=== PATIENT | female | born 1975 | race Caucasian/White ===

== ENCOUNTER 2017-11-19 06:57 | Observation (INO) | payer OTHER ==
[~2017-11-19 06:57] MED LIST: ACETAMINOPHEN 1000 MG/100 ML 100 ML IV; ARTIFICIAL TEARS OPTH OINT 3.5 APPLIC/3.5 GM TUBO
[2017-11-19] MEDS: CHLORHEXIDINE GLUCONATE 2 % 1 PACK (2 CLOTHS) TOPICAL (07:45)
[2017-11-19] MEDS: LACTATED RINGER'S 1000 ML IV (07:45)
[2017-11-19] MEDS ORDERED: ceFAZolin 2 GM PREMIX 50 ML (07:45)
[2017-11-19] MEDS: POVIDONE IODINE 5% (ANTISEPSIS KIT) 4 APPLICATIONS EACH NARE (07:45)
[2017-11-19] MEDS ORDERED: ceFAZolin 2 GM in NS 100 ML IV (07:45)
[2017-11-19] MEDS ORDERED: METOPROLOL TARTRATE 25 MG TAB PO (08:00)
[2017-11-19] MEDS ORDERED: SODIUM CHLORID 0.9% 500 ML IV (08:00)
[2017-11-19] MEDS ORDERED: APREPITANT 40 MG CAP (08:06)
[2017-11-19] MEDS: ceFAZolin 2 GM PREMIX 50 ML (09:18)
[2017-11-19] MEDS: DEXAMETHASONE SOD PHOS 4 MG/ML VIAL (10:07)
[2017-11-19] MEDS: THROMBIN (TOPICAL) 5,000 UNIT VIAL (10:07)
[2017-11-19] MEDS: BUPIVACAINE/EPINEPHRINE 0.5% PF 10 ML VIAL (10:07)
[2017-11-19] MEDS: GENTAMICIN SULFATE 80 MG/2 ML VIAL (10:07)
[2017-11-19] MEDS: GELFOAM SIZE 100 (10:07)
[2017-11-19] MEDS: methylPREDNISolone ACETATE 40 MG/ML VIAL (10:07)
[2017-11-19] MEDS ORDERED: diphenhydrAMINE HCL 50 MG/ML VIAL (12:02)
[2017-11-19] MEDS ORDERED: traMADol HCL 50 MG TAB PO (12:15)
[2017-11-19] MEDS ORDERED: DEXTROSE 50% IN WATER 50 ML VIAL(D50) IV PUSH (12:15)
[2017-11-19] MEDS ORDERED: GLUCAGON 1 MG/ML VIAL OTHER (12:15)
[2017-11-19] MEDS ORDERED: oxyCODONE/ACETAMINOPHEN 5 MG/325 MG TAB PO (12:15)
[2017-11-19] MEDS ORDERED: ACETAMINOPHEN 325 MG TAB PO (12:15)
[2017-11-19] MEDS ORDERED: IBUPROFEN 800 MG TAB PO ×2 (12:15→15:45)
[2017-11-19] MEDS ORDERED: MORPHINE SULFATE 4 MG/ML INJ IV PUSH ×2 (12:15)
[2017-11-19] MEDS ORDERED: ACETAMINOPHEN/HYDROcodone 325 MG/10 MG TAB PO (12:15)
[2017-11-19] MEDS ORDERED: MIDAZOLAM HCL 2 MG/2 ML VIAL (12:50)
[2017-11-19] MEDS: NS + KCL 20 MEQ INJ 1,000 ML IV (13:33)
[2017-11-19] MEDS ORDERED: DO NOT ADM ANY ANTICOAGULANT DRUGS (13:45)
[2017-11-19] MEDS: *morphine SULFATE 4 MG/ML PERIprocedure ONLY (13:50)
[2017-11-19] MEDS: ACETAMINOPHEN/HYDROcodone 325 MG/10 MG TAB PO (14:50)
[2017-11-19] MEDS: metFORMIN HCL 500 MG TAB PO (17:10)
[2017-11-19] MEDS: INSULIN ASPART SUPPLEMENTAL SCALE SQ ×2 (17:12→21:32)
[2017-11-19] MEDS: CEFAZOLIN INJ 2,000 MG in SODIUM CHLORIDE 0.9% INJ 100 ML IV (17:21)
[2017-11-19] MEDS: oxyCODONE/ACETAMINOPHEN 5 MG/325 MG TAB PO (17:26)
[2017-11-19] MEDS: ONDANSETRON HCL 4 MG/2 ML VIAL IV PUSH (21:32)
[2017-11-19] MEDS: DOCUSATE SODIUM 100 MG CAP PO (21:32)
[2017-11-20] MEDS: CEFAZOLIN INJ 2,000 MG in SODIUM CHLORIDE 0.9% INJ 100 ML IV ×2 (01:52→09:05)
[2017-11-20] MEDS: NS + KCL 20 MEQ INJ 1,000 ML IV (01:52)
[2017-11-20] MEDS: INSULIN ASPART SUPPLEMENTAL SCALE SQ (08:00)
[2017-11-20] MEDS: metFORMIN HCL 500 MG TAB PO (09:04)
[2017-11-20] MEDS: oxyCODONE/ACETAMINOPHEN 5 MG/325 MG TAB PO (09:04)
[2017-11-20] MEDS: LOSARTAN 50 MG TAB PO (09:04)
[2017-11-20] MEDS: DOCUSATE SODIUM 100 MG CAP PO (09:04)
[2017-11-20] MEDS: PANTOPRAZOLE SOD 40 MG DELAYED RELEASE TAB PO (09:04)
== END 2017-11-20 13:10 | disposition home or self-care (01) ==
LOC: HSDC 06:57 → HSDI 12:06 → N05B 14:25
DX: M51.27 Other intervertebral disc displacement, lumbosacral region (principal); I10 Essential (primary) hypertension; E66.9 Obesity, unspecified
CPT/HCPCS: 00630; 72020; 76000; 82948; 96365; 96366; 96372; 96375; 96376; 97162-GP